=== PATIENT | male | born 1960 | race Caucasian/White ===

== ENCOUNTER → 2021-02-04 00:11 | Outpatient (CLI) | payer BC, SELFPAY ==
[2021-02-04 18:59] LABS: SARS-CoV-2 RNA PCR Negative
== END ==
PROVIDERS: PCP Registered Nurse; Visit Provider Internal Medicine Gastroenterology
DX: Z01.812 Encounter for preprocedural laboratory examination (principal); Z20.822 Contact with and (suspected) exposure to COVID-19
CPT/HCPCS: C9803; U0003; U0005

== ENCOUNTER 2021-02-07 00:57 | Day surgery (SDC) | payer BC, SELFPAY ==
[2021-01-24 14:58] VITALS: BMI 29.4
[2021-02-07 07:57] VITALS: BP 134/79; PULSE 108; RESP 18; TEMP 37.3; O2SAT 97; BMI 28.2
[2021-02-07] MEDS: LACTATED RINGERS 1,000 ML 150 ML IV CONT (08:08)
[2021-02-07 08:11] LABS: Glucose Point of Care 154 (65-105)
--- NOTE | 2021-02-07 08:15 | PM.HPGS ---
History of Present Illness History of Present Illness Consent: Risks, benefits, and alternatives have been discussed and questions answered. Patient agrees to proceed with procedure. Chief complaint: Neoplasm Screening, Hx Of Colon Polyps Narrative: Stefano Tarango is a 60 year old male With history of colon polyps who is here for screening colonoscopy Review of Systems Review of Systems: All systems reviewed & are unremarkable except as noted in HPI and below PMFSH Family History Family History Father Family history of kidney disease Family history of emphysema Family history of type 2 diabetes mellitus Mother Family history of Alzheimer's disease Family history of type 2 diabetes mellitus Sibling Family history of type 2 diabetes mellitus Family history of heart disease in male family member before age 55 Other Depression Diabetes mellitus Family history of chronic obstructive pulmonary disease Family history of malignant neoplasm of breast in first degree relative Family history of mental disorder Family history of thyroid disease Social History Social History Years smoked: 25 Smoking status: Former smoker Tobacco type: cigarettes Smoking end date: 11/26/93 Alcohol intake: never Substance use type: does not use Living arrangements: with family Gender identity (if verbalized by the patient): Male Spiritual care concerns: No Meds Home Medications and Allergies Home Medications Medication Instructions Recorded Confirmed Type sodium,potassium,mag sulfates 17.5 See Rx Instructions PO .COMPLEX 01/07/21 02/07/21 Rx gram-3.13 gram-1.6 gram oral soln #354 ml alprazolam 0.25 mg PO DAILY 01/24/21 02/07/21 History hydrochlorothiazide 6 mg PO DAILY 01/24/21 02/07/21 History irbesartan [Avapro] 300 mg PO DAILY 01/24/21 02/07/21 History metformin 500 mg PO BID 01/24/21 02/07/21 History omeprazole 40 mg PO DAILY 01/24/21 02/07/21 History rosuvastatin [Crestor] 5 mg PO DAILY 01/24/21 02/07/21 History sitagliptin [Januvia] 100 mg PO DAILY 01/24/21 02/07/21 History ferrous sulfate [iron] 325 mg PO DAILY 01/28/21 02/07/21 History Allergies Allergy/AdvReac Type Severity Reaction Status Date / Time DL Inhibitors Allergy Unknown Cough Verified 01/24/21 14:54 cetirizine Allergy Unknown Other Verified 01/24/21 14:54 CETIRIZINE HCL AdvReac Intermediate HEART Uncoded 01/20/19 11:55 RACES Vital Signs Vital Signs - 24 hr 02/07/21 07:57 Temperature 37.3 C Pulse Rate 108 H Respiratory Rate 18 Blood Pressure 134/79 Pulse Oximetry 97 Exam Resp: Auscultation: clear to auscultation bilaterally Cardio: Rate: regular rate Rhythm: regular rhythm GI: GI Palp: Yes Soft to palpation and No Tenderness to palpation present (GI) Assessment and Plan Assessment and plan (1) Colon cancer screening: Code(s): Z12.11 - Encounter for screening for malignant neoplasm of colon Status: Acute Assessment and Plan: Colonoscopy with possible biopsy or polypectomy or cautery or injection of substances.
--- NOTE | 2021-02-07 08:58 | WPDANESEPPF ---
Anes - Initial Pre Proc Eval Procedure: Operation Date: 02/07/21 09:00 Proposed Procedures p Screening Colonoscopy - Valente Enrique MD Date/Time: 02/07/21 08:58 Surgeon: Valente Enrique MD Pre Op Diagnosis: Neoplasm Screening, Hx Of Colon Polyps Patient Data Age: 60 Gender: M Height: 5 ft 6 in Weight: 79.4 kg Last Vital Signs Temp 99.1 F 02/07/21 07:57 Pulse 108 H 02/07/21 07:57 Resp 18 02/07/21 07:57 BP 134/79 02/07/21 07:57 Pulse Ox 97 02/07/21 07:57 Allergies Allergy/AdvReac Type Severity Reaction Status Date / Time DL Inhibitors Allergy Unknown Cough Verified 01/24/21 14:54 cetirizine Allergy Unknown Other Verified 01/24/21 14:54 CETIRIZINE HCL AdvReac Intermediate HEART Uncoded 01/20/19 11:55 RACES Home Medications Medication Instructions Recorded Confirmed Type sodium,potassium,mag sulfates 17.5 See Rx Instructions PO .COMPLEX 01/07/21 02/07/21 Rx gram-3.13 gram-1.6 gram oral soln #354 ml alprazolam 0.25 mg PO DAILY 01/24/21 02/07/21 History hydrochlorothiazide 6 mg PO DAILY 01/24/21 02/07/21 History irbesartan [Avapro] 300 mg PO DAILY 01/24/21 02/07/21 History metformin 500 mg PO BID 01/24/21 02/07/21 History omeprazole 40 mg PO DAILY 01/24/21 02/07/21 History rosuvastatin [Crestor] 5 mg PO DAILY 01/24/21 02/07/21 History sitagliptin [Januvia] 100 mg PO DAILY 01/24/21 02/07/21 History ferrous sulfate [iron] 325 mg PO DAILY 01/28/21 02/07/21 History Laboratory Tests 02/07/21 08:07 POC Capillary Glucose 154 mg/dl H mg/dl (65-105) Patient hx anesthesia problems: none Family hx anesthesia problems: none PMFSH Past Medical History Medical History (Updated 02/07/21 @ 08:58 by Donn Edwards MD) Diabetes Hyperlipidemia Hypertension Family History Family History Father Family history of kidney disease Family history of emphysema Family history of type 2 diabetes mellitus Mother Family history of Alzheimer's disease Family history of type 2 diabetes mellitus Sibling Family history of type 2 diabetes mellitus Family history of heart disease in male family member before age 55 Other Depression Diabetes mellitus Family history of chronic obstructive pulmonary disease Family history of malignant neoplasm of breast in first degree relative Family history of mental disorder Family history of thyroid disease Social History Social History Years smoked: 25 Smoking status: Former smoker Tobacco type: cigarettes Smoking end date: 11/26/93 Alcohol intake: never Substance use type: does not use Living arrangements: with family Gender identity (if verbalized by the patient): Male Spiritual care concerns: No Anes - Eval Final PreProcedure Day of Procedure 02/07/21 08:58 Patient weight: overweight Heart: regular rate and rhythm Lungs: clear to auscultation Airway: Mallampati scale class II Neurological: alert and oriented Last oral intake: >/= 8 hours ASA classification: III Emergent: no Anesthetic plan: proceed Anesthesia type and monitoring: general GIVS and standard monitoring Informed Consent: The patient's anesthetic plan and its attendant risks and benefits were discussed with the patient/family/POA. Questions were solicited and answers provided to the satisfaction of the patient/family/POA.
[2021-02-07 09:12] VITALS: BP 131/74; PULSE 85; RESP 16; O2SAT 98
[2021-02-07 09:22] VITALS: BP 118/72; PULSE 88; RESP 18; O2SAT 99
[2021-02-07 09:32] VITALS: BP 122/70; PULSE 84; RESP 20; O2SAT 99
== END 2021-02-07 10:00 | disposition home or self-care (01) ==
PROVIDERS: PCP Registered Nurse; Visit Provider Internal Medicine Gastroenterology
PROC: 0DJD8ZZ Inspection of Lower Intestinal Tract, Via Natural or Artificial Opening Endoscopic (ICD-10-PCS; CPT 45378; principal; 2021-02-07 09:00)
DX: Z12.11 Encounter for screening for malignant neoplasm of colon (principal); Z87.891 Personal history of nicotine dependence; Z83.3 Family history of diabetes mellitus; Z82.49 Family history of ischemic heart disease and other diseases of the circulatory system; Z82.5 Family history of asthma and other chronic lower respiratory diseases; K57.30 Diverticulosis of large intestine without perforation or abscess without bleeding
CPT/HCPCS: 45378; 82948; J2704; J7120

== ENCOUNTER 2022-04-13 00:38 | Day surgery (SDC) | payer BC, SELFPAY ==
[2022-04-03 11:16] VITALS: BMI 28.4
--- NOTE | 2022-04-12 15:16 | PM.HPGS ---
History of Present Illness History of Present Illness Consent: Risks, benefits, and alternatives have been discussed and questions answered. Patient agrees to proceed with procedure. Chief complaint: GERD Narrative: Stefano Tarango is a 62 year old male With a long history of GERD treated with PPI daily. For the past 4 months with increased heartburn and reflux symptoms that are worse at night despite PPI use. He reports compliance with his PPI daily that he takes in the AM, he was also started on Pepcid at nighttime with no improvement in symptoms. He has increased belching and bloating after larger meals as well. Review of Systems Review of Systems: All systems reviewed & are unremarkable except as noted in HPI and below PMFSH Past Medical History Medical History Anxiety Depression Diabetes Hyperlipidemia Hypertension Overweight (BMI 25.0-29.9) Family History Family History Father Family history of kidney disease Family history of emphysema Family history of type 2 diabetes mellitus Mother Family history of Alzheimer's disease Family history of type 2 diabetes mellitus Sibling Family history of type 2 diabetes mellitus Family history of heart disease in male family member before age 55 Other Depression Diabetes mellitus Family history of chronic obstructive pulmonary disease Family history of malignant neoplasm of breast in first degree relative Family history of mental disorder Family history of thyroid disease Social History Social History Years smoked: 25 Smoking status: Former smoker Tobacco type: cigarettes Smoking end date: 11/26/93 Alcohol intake: never Substance use type: does not use Living arrangements: with family Gender identity (if verbalized by the patient): Male Spiritual care concerns: No Meds Home Medications and Allergies Home Medications Medication Instructions Recorded Confirmed Type Januvia 100 mg PO DAILY 01/24/21 04/13/22 History alprazolam 0.25 mg PO DAILY 01/24/21 04/13/22 History irbesartan [Avapro] 300 mg PO DAILY 01/24/21 04/13/22 History metformin 500 mg PO BID 01/24/21 04/13/22 History rosuvastatin [Crestor] 5 mg PO DAILY 01/24/21 04/13/22 History ferrous sulfate [iron] 325 mg PO DAILY 01/28/21 04/13/22 History trazodone 150 mg PO HS PRN 04/03/22 04/13/22 History omeprazole 40 mg capsule,delayed 40 mg PO DAILY #30 cap 04/12/22 04/13/22 Rx release Allergies Allergy/AdvReac Type Severity Reaction Status Date / Time DL Inhibitors Allergy Unknown Cough Verified 04/13/22 08:12 cetirizine Allergy Unknown Other Verified 04/13/22 08:12 Exam Const: General: alert Orientation/consciousness: patient oriented x3 Resp: Auscultation: clear to auscultation bilaterally Cardio: Rhythm: regular rhythm GI: GI Palp: Yes Soft to palpation and No Tenderness to palpation present (GI) Neuro: General: patient oriented x3 Assessment and Plan Assessment and plan (1) GERD (gastroesophageal reflux disease): Code(s): K21.9 - Gastro-esophageal reflux disease without esophagitis Status: Acute Assessment and Plan: EGD with possible biopsy or dilatation or cautery.
[2022-04-13 08:03] VITALS: BP 128/82; PULSE 88; RESP 16; TEMP 36.4; O2SAT 99; BMI 28.2
[2022-04-13] MEDS: LACTATED RINGERS 1,000 ML 150 ML IV CONT (08:28)
[2022-04-13 08:30] LABS: Glucose Point of Care 145 mg/dl (65-105)
--- NOTE | 2022-04-13 08:31 | WPDANESEPPF ---
Anes - Initial Pre Proc Eval Procedure: Operation Date: 04/13/22 09:30 Proposed Procedures p Esophagogastroduodenoscopy - Valente Enrique MD Date/Time: 04/13/22 08:31 Surgeon: Valente Enrique MD Pre Op Diagnosis: GERD Patient Data Age: 62 Gender: M Height: 1.68 m Weight: 79.4 kg Last Vital Signs Temp 36.4 C 04/13/22 08:03 Pulse 88 04/13/22 08:03 Resp 16 04/13/22 08:03 BP 128/82 04/13/22 08:03 Pulse Ox 99 04/13/22 08:03 Allergies Allergy/AdvReac Type Severity Reaction Status Date / Time DL Inhibitors Allergy Unknown Cough Verified 04/13/22 08:12 cetirizine Allergy Unknown Other Verified 04/13/22 08:12 Home Medications Medication Instructions Recorded Confirmed Type Januvia 100 mg PO DAILY 01/24/21 04/13/22 History alprazolam 0.25 mg PO DAILY 01/24/21 04/13/22 History irbesartan [Avapro] 300 mg PO DAILY 01/24/21 04/13/22 History metformin 500 mg PO BID 01/24/21 04/13/22 History rosuvastatin [Crestor] 5 mg PO DAILY 01/24/21 04/13/22 History ferrous sulfate [iron] 325 mg PO DAILY 01/28/21 04/13/22 History trazodone 150 mg PO HS PRN 04/03/22 04/13/22 History omeprazole 40 mg capsule,delayed 40 mg PO DAILY #30 cap 04/12/22 04/13/22 Rx release Laboratory Tests 04/13/22 08:23 POC Capillary Glucose 145 mg/dl H mg/dl (65-105) Patient hx anesthesia problems: none Family hx anesthesia problems: none Results Review: All pre-operative results and documents have been reviewed as part of the pre-operative evaluation. [facility] Past Medical History Medical History (Updated 04/13/22 @ 08:32 by Elliott Alvarez MD) Anxiety Depression Diabetes Hyperlipidemia Hypertension Overweight (BMI 25.0-29.9) Family History Family History Father Family history of kidney disease Family history of emphysema Family history of type 2 diabetes mellitus Mother Family history of Alzheimer's disease Family history of type 2 diabetes mellitus Sibling Family history of type 2 diabetes mellitus Family history of heart disease in male family member before age 55 Other Depression Diabetes mellitus Family history of chronic obstructive pulmonary disease Family history of malignant neoplasm of breast in first degree relative Family history of mental disorder Family history of thyroid disease Social History Social History Years smoked: 25 Smoking status: Former smoker Tobacco type: cigarettes Smoking end date: 11/26/93 Alcohol intake: never Substance use type: does not use Living arrangements: with family Gender identity (if verbalized by the patient): Male Spiritual care concerns: No Anes - Eval Final PreProcedure Day of Procedure 04/13/22 08:31 Patient weight: overweight Heart: regular rate and rhythm Lungs: clear to auscultation and normal air movement Airway: Mallampati scale class II Neurological: alert and oriented Last oral intake: >/= 8 hours ASA classification: III Emergent: no Anesthetic plan: proceed Anesthesia type and monitoring: general GIVS Results Review: All pre-operative results and documents have been reviewed as part of the pre-operative evaluation. Informed Consent: The patient's anesthetic plan and its attendant risks and benefits were discussed with the patient/family/POA. Questions were solicited and answers provided to the satisfaction of the patient/family/POA.
[2022-04-13] MEDS: BENZOCAINE (*SP) 60 ML SPRAY CAN (HURRICAINE) 1 SPRAY MUCOUS MEM (09:29)
[2022-04-13 09:41] VITALS: BP 122/76; PULSE 78; RESP 18; O2SAT 98
--- NOTE | 2022-04-13 09:42 | SUR.OPER ---
RN verified with dr. kingsley collection of distal esophageal biopsies to rule out kaplan's
[2022-04-13 09:51] VITALS: BP 119/82; PULSE 80; RESP 18; O2SAT 97
[2022-04-13 10:01] VITALS: BP 122/74; PULSE 82; RESP 20; O2SAT 98
== END 2022-04-13 10:18 | disposition home or self-care (01) ==
PROVIDERS: PCP Registered Nurse; Visit Provider Internal Medicine Gastroenterology
PROC: 0DJ08ZZ Inspection of Upper Intestinal Tract, Via Natural or Artificial Opening Endoscopic (ICD-10-PCS; CPT 43235; principal; 2022-04-13 09:30)
DX: K21.9 Gastro-esophageal reflux disease without esophagitis (principal); E11.9 Type 2 diabetes mellitus without complications; E78.5 Hyperlipidemia, unspecified; F41.8 Other specified anxiety disorders; Z87.891 Personal history of nicotine dependence; Z79.84 Long term (current) use of oral hypoglycemic drugs
CPT/HCPCS: 43239; 82948; 88305; J2001; J2704; J7120

== ENCOUNTER 2022-11-16 11:43 | Outpatient (CLI) | payer BC, SELFPAY ==
[2022-11-16 12:24] LABS: Hematocrit 38.9 % (42.0-52.0); Hemoglobin 13.3 g/dL (14.0-18.0); Mean Corpuscular HGB Conc 34.2 g/dl (32-36); Mean Corpuscular Volume 87.6 fl (80-100); Mean Platelet Volume 9.5 fl (7.4-10.4); Platelet Count Result 193 k/mm3 (150-375); Red Blood Count 4.44 M/mm3 (4.6-6.20); White Blood Count 5.8 K/mm3 (4.5-10.0)
[2022-11-16 12:40] LABS: Alanine Aminotransferase 35 U/L (6-50); Albumin Level 4.6 g/dL (3.5-5.1); Alkaline Phosphatase 52 U/L (38-126); Amylase 133 U/L (30-110); Anion Gap 6 mmol/L (8-16); Aspartate Amino Transferase 31 U/L (17-59); Bilirubin,Total 0.6 mg/dL (0.2-1.3); Blood Urea Nitrogen 13 mg/dL (9-20); Calcium 8.3 mg/dL (8.4-10.2); Carbon Dioxide 27 mmol/L (22-30); Chloride 102 mmol/L (98-107); Estimated Glomerular Filt Rate > 60; Glucose 143 mg/dL (65-110); Lipase 308 U/L (23-300); Potassium 4.5 mmol/L (3.4-5.0); Sodium 135 mmol/L (137-145)
== END 2022-11-16 11:44 | disposition home or self-care (01) ==
LOC: ANHLAB 11:44
PROVIDERS: PCP Registered Nurse; Visit Provider Nurse Practitioner Family
DX: R10.9 Unspecified abdominal pain (principal)
CPT/HCPCS: 36415; 80053; 82150; 83690; 85027

== ENCOUNTER 2022-11-29 07:18 | Outpatient (CLI) | payer BC, SELFPAY ==
--- NOTE | ~2022-11-29 | CT_ITS ---
EXAMINATION: CT abdomen pelvis w con DATE: 11/29/2022 07:50 INDICATION: Left-sided abdominal pain for a couple of weeks. Elevated serum amylase level TECHNIQUE: Computed tomography (CT) of the abdomen and pelvis was performed with 100 CC Omnipaque 350 intravenous contrast. Automated exposure control and iterative reconstruction technique were employe d. Exam dose: 599.23 mGy-cm total exam DLP. COMPARISON: 10/25/2017 CT abdomen pelvis FINDINGS: The lung bases are clear. Normal heart size. No pericardial or pleural effusion. The liver, spleen, pancreas, gallbladder and bile and pancreatic ducts are unremarkable. No pancreati c calcification. Normal morphology of the adrenal glands. 4 mm right renal cyst. The kidneys are otherwise unremarkable. No urinary tract calculus or hydrouret eronephrosis. The urinary bladder is relatively evacuated, not optimally evaluated. There is normal caliber of the abdominal aorta. No intraperitoneal or retroperitoneal or pelvic mass lesion or adenopathy or ascites. Small fat-containing right inguinal hernia. Normal appendix. Diverticulosis of the sigmoid colon; no CT evidence of diverticulitis. No bowel obst ruction, bowel wall thickening, pneumatosis or intraperitoneal free air. Bilateral L5 pars interarticularis defects with grade 1 anterolisthesis at L5-S1. Mild degenerative c hange of the thoracic and lumbar spine. Included skeletal structures are otherwise unremarkable. IMPRESSION: 4 mm right renal cyst Diverticulosis of sigmoid colon; no evidence of diverticulitis Bilateral L5 pars interarticularis defects with grade 1 anterolisthesis at L5-S1 Reviewed, dictated and finalized at [facility]. Reviewed, dictated and finalized at [facility]. [employer]ICIAN IMPRESSION: 4 mm right renal cyst Diverticulosis of sigmoid colon; no evidence of diverticulitis Bilateral L5 pars interarticularis defects with grade 1 anterolisthesis at L5-S 1
== END 2022-11-29 07:19 | disposition home or self-care (01) ==
PROVIDERS: PCP Registered Nurse; Visit Provider Nurse Practitioner Family
DX: R10.9 Unspecified abdominal pain (principal); N28.1 Cyst of kidney, acquired; K57.30 Diverticulosis of large intestine without perforation or abscess without bleeding
CPT/HCPCS: 74177; Q9967

== ENCOUNTER 2023-06-27 12:25 | Outpatient (CLI) | payer BC, SELFPAY ==
[2023-07-08 16:22] LABS: Pancreatic Elastase, Stool >500 mcg/g
[2023-07-08 22:44] LABS: Calprotectin, Stool 87 mcg/g
== END 2023-06-27 12:26 | disposition home or self-care (01) ==
PROVIDERS: PCP Family Medicine; Visit Provider Nurse Practitioner Family
DX: K52.9 Noninfective gastroenteritis and colitis, unspecified (principal); K92.89 Other specified diseases of the digestive system; R10.9 Unspecified abdominal pain
CPT/HCPCS: 82653; 83993; 87045; 87177; 87209; 87427; 87449

== ENCOUNTER 2023-07-06 15:23 | Emergency (ER) | payer BC, SELFPAY ==
[2023-07-06 15:27] VITALS: BP 121/80; PULSE 108; RESP 18; TEMP 36.4; O2SAT 100
--- NOTE | 2023-07-06 15:29 | ED.DENTAL ---
HPI - Dental/Oral General Chief complaint: Skin/Abscess/Foreign Body Stated complaint: Mouth Sore Time Seen by Provider: 07/06/23 15:29 Source: patient, RN notes reviewed and old records reviewed Mode of arrival: ambulatory Limitations: no limitations History of Present Illness HPI Narrative: 63-year-old male presents to the [facility] with complaints the corner of his mouth cracking and discomfort. No redness, no inflammation, no vesicular areas. Patient states that he use Blistex, it clears up but as soon as he stops using it it returns. Very small fissure noted to the right corner of the mouth. Onset (ago): month(s) Related Data Home Medications Medication Instructions Recorded Confirmed irbesartan 300 mg tablet (Avapro) 300 mg PO DAILY 01/24/21 07/06/23 metformin 500 mg tablet 500 mg PO BID 01/24/21 07/06/23 ferrous sulfate 325 mg (65 mg 325 mg PO DAILY 01/28/21 07/06/23 iron) tablet (iron) trazodone 150 mg tablet 150 mg PO HS PRN Sleep 04/03/22 07/06/23 alprazolam 0.25 mg tablet (Xanax) 0.25 mg PO TID 05/15/23 07/06/23 blood sugar diagnostic (OneTouch 05/15/23 07/06/23 Ultra Test strips) lancets (Lancets,Thin) 05/15/23 07/06/23 sitagliptin phosphate 100 mg 100 mg PO BID 05/15/23 07/06/23 tablet (Januvia) famotidine 40 mg tablet (Pepcid) 40 mg PO QPM 05/25/23 07/06/23 rosuvastatin 5 mg tablet (Crestor) 5 mg PO QHS 05/25/23 07/06/23 Allergies Allergy/AdvReac Type Severity Reaction Status Date / Time cetirizine AdvReac Intermediate Other Verified 07/06/23 15:24 DL Inhibitors AdvReac Mild Cough Verified 07/06/23 15:24 Review of Systems Review of Systems: All systems reviewed & are unremarkable except as noted in HPI and below Constitutional: Constitutional: Reports no additional constitutional complaints Eyes: Eyes: Reports no additional eye complaints ENT: Reports as per HPI Cardiovascular: Cardiovascular: Reports no additional cardiovascular complaints, Denies chest pain and Denies dyspnea Respiratory: Respiratory: Reports no additional respiratory complaints, Denies chest congestion, Denies cough and Denies dyspnea Gastrointestinal: Gastrointestinal: Reports no additional gastrointestinal complaints, Denies abdominal pain, Denies nausea and Denies vomiting Musculoskeletal: Musculoskeletal: Reports no additional musculoskeletal complaints Integumentary/Breasts: Skin/Breast: Reports system reviewed and no additional complaints, except as docu Neurologic: Reports system reviewed and no additional complaints, except as documented Psychiatric: Psychiatric: Reports no additional psychiatric complaints Allergic/Immunologic: Allergic/Immunologic: Reports no additional allergic/immunologic complaints PMFSH Past Medical History Medical History Abdominal pain Anxiety Anxiety attack Bilateral bunions Chronic diarrhea Chronic GERD Decreased hemoglobin Depression Diabetes Elevated amylase and lipase Environmental and seasonal allergies Eosinophilia Essential hypertension Establishing care with new doctor, encounter for Folic acid deficiency Gas bloat syndrome Hallux valgus (acquired), left foot Hx of colonic polyp Hyperglycemia Hyperlipidemia Hyperlipidemia associated with type 2 diabetes mellitus Hypertension Insomnia Overweight (BMI 25.0-29.9) Prostate nodule Tendon laceration Type 2 diabetes mellitus without complication Vitamin D deficiency Surgical History Surgical History H/O arthroscopy of shoulder History of carpal tunnel release History of elbow surgery History of tonsillectomy Hx of colonoscopy S/P cataract extraction Family History Family History Father Family history of kidney disease Family history of emphysema Diabetes mellitus Hypertension Mother Diabetes mellitus Alzheimer disease Sibling Famil
== END 2023-07-06 15:47 | disposition home or self-care (01) ==
PROVIDERS: Emergency Provider Nurse Practitioner; PCP Family Medicine
DX: K13.0 Diseases of lips (principal); Z87.891 Personal history of nicotine dependence; K21.9 Gastro-esophageal reflux disease without esophagitis; E11.9 Type 2 diabetes mellitus without complications; Z79.84 Long term (current) use of oral hypoglycemic drugs; I10 Essential (primary) hypertension; E78.5 Hyperlipidemia, unspecified; F41.9 Anxiety disorder, unspecified; F32.A Depression, unspecified
CPT/HCPCS: 99211; G0463

== ENCOUNTER 2023-07-26 07:36 | Outpatient (CLI) | payer BC, SELFPAY ==
--- NOTE | ~2023-07-26 | NM_ITS ---
EXAM: NM gastric emptying study DATE: 07/26/2023 12:22 INDICATION: Gastroesophageal reflux disease without esophagitis TECHNIQUE: A gastric emptying study was performed using the methodology of Pratik BARNETT, et al. J Nucl Med 2007; 48:568-572. The patient was given a meal consisting of 2 scrambled eggs labeled with 1.019 mCi Tc-99m sulfur colloid, 2 slices of toast, two packages of jam, and approximately 120 mL of water . Simultaneous anterior and posterior 1-min images of the abdomen were obtained with the patient supi ne at multiple time points over a total period of 4 hours. The geometric mean of anterior and posteri or views was determined, and the percentage retention was calculated for each time point. COMPARISON: None. FINDINGS: Gastric retention of the radiotracer-labeled meal was 65%, 46%, and 26% at the 1-hour, 2-hour, and 4- hour time points, respectively. With this technique, apparent rapid gastric emptying is suggested by <30% gastric retention at 1 hour. Delayed gastric emptying is defined by gastric retention of >90% at 1 hour, >60% retention at 2 hours, or >10% retention at 4 hours. IMPRESSION: 1. Delayed gastric emptying. Reviewed, dictated and finalized at location [facility].
== END 2023-07-26 07:37 | disposition home or self-care (01) ==
LOC: ANHIMG 07:37
PROVIDERS: PCP Family Medicine; Visit Provider Nurse Practitioner Family
DX: K21.9 Gastro-esophageal reflux disease without esophagitis (principal); R10.9 Unspecified abdominal pain; K92.89 Other specified diseases of the digestive system; K30 Functional dyspepsia
CPT/HCPCS: 78264; A9541